=== PATIENT | male | born 1990 | race Caucasian/White ===

== ENCOUNTER 2018-07-06 06:47 | Emergency (ER) | payer SELFPAY ==
[2018-07-06] MEDS: IBUPROFEN 600 MG TAB PO (07:48)
== END 2018-07-06 09:00 | disposition home or self-care (01) ==
LOC: FTE 09:00
DX: S89.91XA Unspecified injury of right lower leg, initial encounter (principal); X58.XXXA Exposure to other specified factors, initial encounter; Y92.9 Unspecified place or not applicable
CPT/HCPCS: 29505; 73562; 99283-25